=== PATIENT | female | born 1950 | race Caucasian/White ===

== ENCOUNTER 2016-09-02 18:34 | Emergency (ER) | payer OTHER ==
--- NOTE | 2016-09-02 19:23 | DIAGNOSTIC IMAGING REPORT ---
PROCEDURE: XR CHEST 1 VIEW INDICATION: SHORTNESS OF BREATH TECHNIQUE: Single view chest. 1909 hours COMPARISON: Shoulder x-ray 01/10/2015 FINDINGS: Heart size is normal. Tortuous thoracic aorta. No significant central vascular congestion. Hyperlucent emphysematous changes in the upper lobes. Strandy parenchymal change in the lower lobe suggestive of atelectatic change or mild peribronchial thickening. No dense consolidation, pleural effusion, or pneumothorax. Right humeral head arthroplasty. No visible acute fractures. IMPRESSION: 1. Moderate emphysematous changes. 2. Bibasilar atelectasis or peribronchial thickening, likely chronic in the setting of COPD. 3. No evidence of pneumonia or CHF. 4. Right shoulder arthroplasty.
--- NOTE | 2016-09-02 20:57 | ED ORDER SUMMARY ---
..... Patient: MARITA HANNAH OrderSheet [facility] VisitID: [id number] [place] [address] 66y, F Registration Date/Time: 09/02/2016 ORDER SHEET Weight: 90.2 kg (stated) Allergies: No Known Drug Allergy GENERAL ORDERS: EKG - ER Stat (18:43 09/02/2016 ASchmuck per protocol) (18:47 ASchmuck) Chest 1V Urgent (18:53 09/02/2016 Jean Mejia) (Ack 18:55 Corey) (20:21 MCampbell) UA-Culture if indicated Urgent (18:54 09/02/2016 Jean Mejia) (Ack 18:55 Corey) (20:00 ASchmuck) Cardiac Panel Stat (18:54 09/02/2016 Jean Mejia) (Ack 18:55 Corey) (19:14 ASchmuck) BNP Urgent (18:54 09/02/2016 Jean Mejia) (Ack 18:55 Radhaner) (19:14 ASchmuck) D-Dimer Urgent (18:54 09/02/2016 Jean Mejia) (Ack 18:55 Leticiarner) (19:14 ASchmuck) MEDICATION ORDERS: Metoprolol PO 25 mg (HIGH ALERT MEDICATION, NOW) (19:05 09/02/2016 Jean Mejia) (Ack 19:09 ASchmuck) (19:14 ASchmuck) IV FLUIDS: IV NS : initial bolus none -, then 1000 mL/hr for X1 (NOW) (18:53 09/02/2016 Jean Mejia) (Ack 19:04 ASchmuck) (19:09 ASchmuck) ORDER SHEET NOTES: [Electronically signed by Yudith Stephens (21:24 09/02/2016)] [Electronically signed by Frankie Ballard Dr. (22:04 09/02/2016)] [Electronically locked/signed by Yudith Stephens (21:24 09/02/2016)]
--- NOTE | 2016-09-02 20:57 | ED NURSING NOTES ---
Clinical Report - Nurses [facility] [place] [address] 09/02/2016 18:35 Patient: MARITA HANNHA TRIAGE Triage time 18:35 Sep 02 2016. Acuity: LEVEL 2. Chief Complaint: (Palpitations). 18:46 09/02/16. Alert. No acute distress. SEPSIS SCREEN: Sepsis Screen. Negative (no infection suspected/documented). MARY COMA SCORE: [place] Coma Scale: 15- eyes open spontaneously (4); best verbal response- oriented x 4 (5); best motor response- obeys commands (6). --18:46 Yudith Stephens 18:46 09/02/16. BP: 151/106. HR: 113. RR: 17. O2 saturation: 97%. Temp: 97.9 F. Pain level now 0/10. --18:46 Yudith Stephens. Weight: 90.2 kg stated. Height/Length: 70 inches Per Patient. BMI: 28.5. --18:45 Yudith Stephens. Medications Meloxicam Oral. --18:39 Yudith Stephens Levothyroxine Sodium Oral. --18:39 Yudith Stephens. Medication/allergy information source: the patient. --18:46 Yudith Stephens. Allergies No Known Drug Allergy. --18:40 Yudith Stephens. History Arrived by EMS. Historian: EMS. Accompanied by (EMS). Primary physician (Papo Lewis). This started just prior to arrival. ( Pt states that she had CP and sweats last week and went to the clinic. Had normal EKG and labs, but had HTN. Pt denies dizziness/sob/nausea/vomiting. Reports that she had chest pressure and took nitro, which relieved the pressure, continued to feel as though her heart was racing so she called 911.). She has had a cough. It has been similar to previous symptoms. No difficulty breathing, sweating episodes, nausea, vomiting or fever. 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 EMS treatment BLACK OXIDE COATING EQUIPMENT TENDER verbally communicated. Finger stick glucose performed (166). The pre-hospital EKG has been interpreted by EMS. Tachycardia. Sinus tachycardia. BP: 150/110 then 158/86. HR: 150 down to 118. RR: 16. O2 saturation: 96 % room air. ( Pt took 3 nitro BLACK OXIDE COATING EQUIPMENT TENDER. EMS gave 324 mg aspirin). PAST MEDICAL HX: Immunizations: up-to-date. SOCIAL HX: Heavy tobacco smoker (cigarette)- less than 1 pack per day. Alcohol use; consumes four liquor weekly. No drug use. FALL RISK ASSESSMENT: Fall risk assessment completed. No fall risk identified. NUTRITIONAL RISK ASSESSMENT: The nutritional risk assessment revealed no deficiencies. FUNCTIONAL ASSESSMENT: Functional assessment: no impairments noted. LEARNING NEEDS ASSESSMENT: The learning needs assessment revealed no barriers. SKIN INTEGRITY ASSESSMENT: Skin integrity risk assessment completed. No skin integrity risk identified. --18:46 Yudith Stephens. PROBLEMS: Humerus Fracture. Contusion. Fall. Arthritis. Hypothyroidism. --18:40 Yudith Stephens. ADDITIONAL SURGERIES: Lt knee surg. --18:40 Yudith Stephens. Assessment The patient states feels the same. --18:46 Yudith Stephens. Interventions ID band on patient. CHEST PAIN protocol initiated. EKG time: (1844). EKG was ordered, performed by a tech and shown to the ED physician. --18:46 Yudith Stephens. 18:36 09/02/2016 Site #1 started prior to arrival by EMS via IV in the right hand with an 20g angiocath. --18:36 Yudith Stephens. PHYSICAL ASSESSMENT 18:47 09/02/16. To room via stretcher. Patient gowned. GENERAL / NEURO / PSYCH: Alert. Oriented X 4. Appears in no acute distress. HEENT: Mucous membranes are pink. RESPIRATORY: Respirations not labored. Chest nontender. CVS: Cardiac rhythm: sinus tachycardia. Pulses within normal limits. Capillary refill less than 2 seconds. GI / : Abdomen soft and nontender. EXTREMITIES: No lower extremity edema. SKIN: Skin is warm and dry. Normal skin turgor. Skin is non-tender. --18:47 Yudith Stephens. NURSING PROGRESS NOTES 18:47 09/02/16. The plan of care for this patient has been created. postbed stitcher, pulse oximeter and NIBP monitor placed on patient; supply technician- Lead II and V5; monitor alarms on. Patient gowned. Head of bed elevated. Reassurance given. Two patient identifiers checked. Call light placed in reach. Side rails up x 1. Bed placed in lowest position. Brakes of bed on. Patient ready for evaluation- chart flagged and ED physician and PA notified. --18:47 Yudith Stephens EKG time: (1844). EKG was ordered, performed by tamiko guzman and shown to the ED physician. --18:50 Candice Justin 19:09 09/02/2016 Started bag #1 1000 mL IV Fluids IV NS (Saline); at 1000 mL/hr over 1 hour(s) via site #1 via IV pump. Allergies verified and confirmed 5 rights. IV patency established. IV site checked: no pain, redness, or swelling. IV flushed thoroughly pre- and post-medication administration. --19:09 Yudith Stephens 19:14 09/02/2016 Metoprolol PO Tablets 25 mg given. Allergies verified and confirmed 5 rights. --19:14 Yudith Stephens 19:50 09/02/16. BP: 152/98. HR: 105. RR: 15. O2 saturation: 95%. --19:50 Yudith Stephens 20:00 09/02/16. Patient ID band checked for patient name and birthdate: patient confirmed. Instructions provided to collect clean catch urine and patient verbalized understanding. Clean catch urine collected with return of yellow-colored clear urine; sample sent to lab. Specimen labeled in the presence of the patient. --20:00 Yudith Stephens 20:11 09/02/16. BP: 148/90 taken on the left arm, manually. --20:12 McQuoid, Lashae, ER Tech1 20:10 09/02/2016 IV Fluids IV NS Discontinued. Total amount infused: 0 mL. --21:20 Yudith Stephens 21:09/02/2016 Site #1 removed upon discharge. Catheter intact. Pressure dressing applied. --21:21 Yudith Stephens. DISPOSITION / DISCHARGE 21:20 09/02/16. Departure time: 21:Sep 02 2016. Condition at departure: improved. The goals identified in the patient's plan of care were met. No learning barriers present. Discharge instructions provided and reviewed with the patient. Reviewed warnings (Patient verbalized understanding of the importance of monitoring HR and BP after starting medication.). Reviewed medication(s) side effects, precautions, dosing and course information. Prescription(s) given to the patient (metoprolol). Treatments reviewed. Reviewed referral to a primary care physician for followup. Patient verbalized understanding. Written instructions provided in Kinyarwanda. The patient was discharged by the physician. She was discharged home and accompanied by laser beam trim operator. She left the Emergency Department ambulatory and via private vehicle. Drill Press Tender driving. FALL RISK ASSESSMENT: Fall risk assessment completed. No fall risk identified. --21:20 Yudith Stephens 21:18 09/02/16. BP: 148/96. HR: 84. RR: 15. O2 saturation: 95% on room air. Pain level now: 0/10. --21:20 Yudith Stephens. Locked/Released at 09/02/2016 21:24 by Yudith Stephens,
--- NOTE | 2016-09-02 20:57 | ED NURSING NOTES ---
Clinical Report - Nurses [facility] [place] [address] 09/02/2016 18:35 Patient: MARITA HANNAH TRIAGE Triage time 18:35 Sep 02 2016. Acuity: LEVEL 2. Chief Complaint: (Palpitations). 18:46 09/02/16. Alert. No acute distress. SEPSIS SCREEN: Sepsis Screen. Negative (no infection suspected/documented). MARY COMA SCORE: [place] Coma Scale: 15- eyes open spontaneously (4); best verbal response- oriented x 4 (5); best motor response- obeys commands (6). --18:46 Yudith Stephens 18:46 09/02/16. BP: 151/106. HR: 113. RR: 17. O2 saturation: 97%. Temp: 97.9 F. Pain level now 0/10. --18:46 Yudith Stephens. Weight: 90.2 kg stated. Height/Length: 70 inches Per Patient. BMI: 28.5. --18:45 Yudith Stephens. Medications Meloxicam Oral. --18:39 Yudith Stephens Levothyroxine Sodium Oral. --18:39 Yudith Stephens. Medication/allergy information source: the patient. --18:46 Yudith Stephens. Allergies No Known Drug Allergy. --18:40 Yudith Stephens. History Arrived by EMS. Historian: EMS. Accompanied by (EMS). Primary physician (Papo Lewis). This started just prior to arrival. ( Pt states that she had CP and sweats last week and went to the clinic. Had normal EKG and labs, but had HTN. Pt denies dizziness/sob/nausea/vomiting. Reports that she had chest pressure and took nitro, which relieved the pressure, continued to feel as though her heart was racing so she called 911.). She has had a cough. It has been similar to previous symptoms. No difficulty breathing, sweating episodes, nausea, vomiting or fever. Treatment NETWORK SECURITY ENGINEER: See EMS report. EMS treatment NETWORK SECURITY ENGINEER verbally communicated. Finger stick glucose performed (166). The pre-hospital EKG has been interpreted by EMS. Tachycardia. Sinus tachycardia. BP: 150/110 then 158/86. HR: 150 down to 118. RR: 16. O2 saturation: 96 % room air. ( Pt took 3 nitro NETWORK SECURITY ENGINEER. EMS gave 324 mg aspirin). PAST MEDICAL HX: Immunizations: up-to-date. SOCIAL HX: Heavy tobacco smoker (cigarette)- less than 1 pack per day. Alcohol use; consumes four liquor weekly. No drug use. FALL RISK ASSESSMENT: Fall risk assessment completed. No fall risk identified. NUTRITIONAL RISK ASSESSMENT: The nutritional risk assessment revealed no deficiencies. FUNCTIONAL ASSESSMENT: Functional assessment: no impairments noted. LEARNING NEEDS ASSESSMENT: The learning needs assessment revealed no barriers. SKIN INTEGRITY ASSESSMENT: Skin integrity risk assessment completed. No skin integrity risk identified. --18:46 Yudith Stephens. PROBLEMS: Humerus Fracture. Contusion. Fall. Arthritis. Hypothyroidism. --18:40 Yudith Stephens. ADDITIONAL SURGERIES: Lt knee surg. --18:40 Yudith Stephens. Assessment The patient states feels the same. --18:46 Yudith Stephens. Interventions ID band on patient. CHEST PAIN protocol initiated. EKG time: (1844). EKG was ordered, performed by a tech and shown to the ED physician. --18:46 Yudith Stephens. 18:36 09/02/2016 Site #1 started prior to arrival by EMS via IV in the right hand with an 20g angiocath. --18:36 Yudith Stephens. PHYSICAL ASSESSMENT 18:47 09/02/16. To room via stretcher. Patient gowned. GENERAL / NEURO / PSYCH: Alert. Oriented X 4. Appears in no acute distress. HEENT: Mucous membranes are pink. RESPIRATORY: Respirations not labored. Chest nontender. CVS: Cardiac rhythm: sinus tachycardia. Pulses within normal limits. Capillary refill less than 2 seconds. GI / : Abdomen soft and nontender. EXTREMITIES: No lower extremity edema. SKIN: Skin is warm and dry. Normal skin turgor. Skin is non-tender. --18:47 Yudith Stephens. NURSING PROGRESS NOTES 18:47 09/02/16. The plan of care for this patient has been created. environmental monitoring specialist, pulse oximeter and NIBP monitor placed on patient; awake overnight monitor- Lead II and V5; monitor alarms on. Patient gowned. Head of bed elevated. Reassurance given. Two patient identifiers checked. Call light placed in reach. Side rails up x 1. Bed placed in lowest position. Brakes of bed on. Patient ready for evaluation- chart flagged and ED physician and PA notified. --18:47 Yudith Stephens EKG time: (1844). EKG was ordered, performed by tamiko guzman and shown to the ED physician. --18:50 Candice Justin 19:09 09/02/2016 Started bag #1 1000 mL IV Fluids IV NS (Saline); at 1000 mL/hr over 1 hour(s) via site #1 via IV pump. Allergies verified and confirmed 5 rights. IV patency established. IV site checked: no pain, redness, or swelling. IV flushed thoroughly pre- and post-medication administration. --19:09 Yudith Stephens 19:14 09/02/2016 Metoprolol PO Tablets 25 mg given. Allergies verified and confirmed 5 rights. --19:14 Yudith Stephens 19:50 09/02/16. BP: 152/98. HR: 105. RR: 15. O2 saturation: 95%. --19:50 Yudith Stephens 20:00 09/02/16. Patient ID band checked for patient name and birthdate: patient confirmed. Instructions provided to collect clean catch urine and patient verbalized understanding. Clean catch urine collected with return of yellow-colored clear urine; sample sent to lab. Specimen labeled in the presence of the patient. --20:00 Yudith Stephens 20:11 09/02/16. BP: 148/90 taken on the left arm, manually. --20:12 McQuoid, Lashae, ER Tech1 20:10 09/02/2016 IV Fluids IV NS Discontinued. Total amount infused: 0 mL. --21:20 Yudith Stephens 21:09/02/2016 Site #1 removed upon discharge. Catheter intact. Pressure dressing applied. --21:21 Yudith Stephens. DISPOSITION / DISCHARGE 21:20 09/02/16. Departure time: 21:Sep 02 2016. Condition at departure: improved. The goals identified in the patient's plan of care were met. No learning barriers present. Discharge instructions provided and reviewed with the patient. Reviewed warnings (Patient verbalized understanding of the importance of monitoring HR and BP after starting medication.). Reviewed medication(s) side effects, precautions, dosing and course information. Prescription(s) given to the patient (metoprolol). Treatments reviewed. Reviewed referral to a primary care physician for followup. Patient verbalized understanding. Written instructions provided in Maori. The patient was discharged by the physician. She was discharged home and accompanied by bench molder apprentice. She left the Emergency Department ambulatory and via private vehicle. Health Systems Analyst driving. FALL RISK ASSESSMENT: Fall risk assessment completed. No fall risk identified. --21:20 Yudith Stephens 21:18 09/02/16. BP: 148/96. HR: 84. RR: 15. O2 saturation: 95% on room air. Pain level now: 0/10. --21:20 Yudith Stephens. Locked/Released at 09/02/2016 21:24 by Yudith Stephens,
--- NOTE | 2016-09-02 20:57 | ED CLINICAL REPORT ---
Clinical Report - Physicians/Mid Levels [facility] [address] [place] [address] 09/02/2016 18:35 Patient: MARITA HANNAH Time Seen: 18:43; initial patient contact. Arrived- By ambulance. Historian- patient. HISTORY OF PRESENT ILLNESS Chief Complaint: PALPITATIONS. It is described as a fast heart beat. This started today and is still present. It was abrupt in onset and has been constant. Modifying factors. Not worsened by anything. Not relieved by anything. No chest pain or discomfort, difficulty breathing, sweating episodes or fainting episodes. No dizziness. Treatment NIGHT ORDER SELECTOR: Pre-hospital treatment by patient. (NTG and ASA). Similar symptoms previously: Once. Recent medical care: Not recently seen/assessed. REVIEW OF SYSTEMS No orthopnea or calf pain. All systems otherwise negative, except as recorded above. PAST HISTORY Humerus Fracture. Contusion. Fall. Arthritis. Hypothyroidism. SURGERIES: Lt knee surg. Medications: Levothyroxine Sodium Oral. Meloxicam Oral. Allergies: No Known Drug Allergy. SOCIAL HISTORY Current every day smoker. Occasional alcohol use. ADDITIONAL NOTES The nursing notes have been reviewed. PHYSICAL EXAM Vital Signs: 09/02/2016 18:46 BP: 151/106. HR: 113. RR: 17. O2 saturation: 97%. Temp: 97.9 F. Have been reviewed. Hypertensive. Tachycardic. Respiratory rate normal. Temperature normal. Oxygen saturation normal. Appearance: Alert. Oriented X3. No acute distress. Eyes: Eyes normal inspection. ENT: Dry mucous membranes present. CVS: Tachycardia. Heart sounds normal. Rhythm normal. Respiratory: No respiratory distress. Breath sounds normal. Skin: Skin warm and dry. Normal skin color. Extremities: No calf tenderness. No lower extremity edema. Neuro: Oriented X 3. LABS, X-RAYS, AND EKG EKG: EKG time: (1844). Regular narrow-complex tachycardia (ventricular rate 116). Sinus tachycardia. Normal P waves. Normal FLAKITA. Normal QRS complex. Normal axis. Normal ST and T waves, QT and QTc. Prior EKG unavailable. The study has been interpreted contemporaneously by me. The study has been independently viewed by me. The EKG appears to be a good tracing. Interpretation time: 1844. Chest X-ray: (1. Moderate emphysematous changes. 2. Bibasilar atelectasis or peribronchial thickening, likely chronic in the setting of COPD. 3. No evidence of pneumonia or CHF.). Views: AP. Technique: good. The X-rays were independently viewed by me, interpreted by the radiologist and discussed with the radiologist. Prior films were not available for comparison. Laboratory Tests: UA-Culture if indicated: (ABIOLA: 09/02/2016 19:35) ( [facility] 09/02/2016 20:18) Final results Test Result Flag Units (Reference) URINE COLOR YELLOW URINE APPEARANCE CLEAR URINE GLUCOSE NEGATIVE (NEGATIVE) URINE BILIRUBIN NEGATIVE (NEGATIVE) URINE KETONE NEGATIVE (NEGATIVE) URINE SPECIFIC GRAVITY 1.015 (1.010-1.030) URINE PH 5.5 (5.0-8.0) URINE PROTEIN NEGATIVE (NEGATIVE) URINE UROBILINOGEN 0.2 EU/dL (0.2-1.0) URINE NITRITE NEGATIVE (NEGATIVE) URINE BLOOD NEGATIVE (NEGATIVE) URINE LEUK ESTERASE NEGATIVE (NEGATIVE) URINE RBC NONE SEEN rbc/hpf (0-1) URINE WBC 0-1 wbc/hpf (0-1) URINE EPITHELIAL CELLS 0-1 EPI/hpf (0-5) URINE BACTERIA NONE SEEN (NONE SEEN) URINE COMMENT CULT NOT INDICATED URINE CULTURES ARE SET-UP BASED ON THE FOLLOWING CRITERIA:POSITIVE NITRITEPOSITIVE LEUKOCYTE ESTERASEGREATER THAN 10 WHITE BLOOD CELLSMODERATE (2+) OR GREATER BACTERIA CBC w Diff: (ABIOLA: 09/02/2016 19:05) ( [facility] 09/02/2016 19:28) Final results Test Result Flag Units (Reference) WHITE BLOOD COUNT 11.1 K/uL (4.5-11.5) RED BLOOD COUNT 4.48 M/uL (4.00-5.20) HEMOGLOBIN 14.3 gm/dL (12.0-16.0) HEMATOCRIT 42.3 % (36.0-46.0) MEAN CELL VOLUME 95 fL (80-100) MEAN CORPUSCULAR HGB 32 pg (26-34) MEAN CORPUSCULAR HGB CONC 34 g/dL (31-37) RED CELL DISTRIBUTION WIDTH 13.6 % (11.6-14.8) PLATELET COUNT 216 K/uL (150-400) NEUTROPHIL % 65.9 % (50-75) LYMPH % 23.4 L % (25-40) MONO % 7.7 % (3-14) EOSINOPHIL % 2.6 % (0-4) BASOPHIL % 0.4 % (0-2) [id number]: (ABIOLA: 09/02/2016 19:05) ( [employer] 09/02/2016 19:42) Final results Test Result Flag Units (Reference) D-DIMER QUANTITATIVE < 0.27 L ug/mLFEU (0.27-0.52) The primary value of this quantitative assay relates toits negative predictive value (i.e. exclusion) of pulmonaryembolism/deep vein thrombosis/DIC.Elevated levels of d-dimer may also occur with:, age, cancer, inflammation, liver disease,post-op, infection, hematoma, coronary disease, peripheralarteriopathy, bleeding disorders and thrombolytic treatment.Results should be correlated with other clinical andradiological data.Testing Methodology: Latex Immunoassay BNP: (ABIOLA: 09/02/2016 19:05) ( [employer] 09/02/2016 20:00) Final results Test Result Flag Units (Reference) B-TYPE NATRIURETIC PEPTIDE 8.6 pg/ml (5-100) CHEM 13 PANEL: (ABIOLA: 09/02/2016 19:05) ( [employer] 09/02/2016 19:59) Final results Test Result Flag Units (Reference) GLUCOSE 131 H mg/dL (70-110) BUN 19 H mg/dL (7-18) CREATININE 0.8 mg/dL (0.6-1.3) Estimated GFR >60 mL/min Estimated GFR- >60 mL/min Note: Persistent reduction over 3 months in eGFR<60 mL/min/1.73 m2 defines CKD. Patients with eGFR values>=60 mL/min/1.73 m2 may also have CKD if evidence ofpersistent proteinuria. Additional information may be foundat www.kidney.org. SODIUM 139 mmol/L (136-145) POTASSIUM 3.8 mmol/L (3.5-5.1) CHLORIDE 103 mmol/L (98-107) CARBON DIOXIDE 26 mmol/L (21-32) CALCIUM 9.0 mg/dL (8.5-10.1) TOTAL PROTEIN 7.0 g/dL (6.4-8.2) ALBUMIN 3.7 g/dL (3.3-5.0) BILIRUBIN, TOTAL 0.4 mg/dL (0.0-1.0) ALKALINE PHOSPHATASE 93 U/L (46-116) AST (SGOT) 20 U/L (15-37) ALT (SGPT) 27 U/L (12-78) MAGNESIUM 1.9 mg/dL (1.8-2.4) CPK 109 U/L (24-260) TROPONIN I <0.05 ng/mL (0.00-1.5) TROPONIN REFERENCE RANGE:<0.1 NEGATIVE0.1-1.5 INDETERMINANT>1.5 POSITIVE . PROGRESS AND PROCEDURES Course of Care: 09/02/2016 20:56 HR: 93. 09/02/2016 20:11 BP: 148/90. Vital Signs: have been reviewed. Hypertensive. Heart rate normal. Disposition: Discharged home in good and improved condition. Condition: good. CLINICAL IMPRESSION Sinus tachycardia Essential hypertension. INSTRUCTIONS Follow a low salt diet. Your Current Medications: CONTINUE TAKING THE FOLLOWING MEDICATIONS: Levothyroxine Sodium Oral. Meloxicam Oral. Prescription Medications: Metoprolol 25 mg: take 1 orally every 12 hours. Dispense thirty (30). No refills. Follow-up: Follow up with your doctor On 09/16/16 as scheduled. Screening today revealed the patient's blood pressure to be in the hypertensive range. The patient should follow up with a primary care provider for blood pressure management. (Electronically signed by Frankie Ballard Dr. 09/02/2016 22:04)
--- NOTE | 2016-09-02 20:57 | ED ORDER SUMMARY ---
..... Patient: MARITA HANNAH OrderSheet [facility] VisitID: [id number] [place] [address] 66y, F Registration Date/Time: 09/02/2016 ORDER SHEET Weight: 90.2 kg (stated) Allergies: No Known Drug Allergy GENERAL ORDERS: EKG - ER Stat (18:43 09/02/2016 ASchmuck per protocol) (18:47 ASchmuck) Chest 1V Urgent (18:53 09/02/2016 Jean Mejia) (Ack 18:55 Corey) (20:21 MCampbell) UA-Culture if indicated Urgent (18:54 09/02/2016 Jean Mejia) (Ack 18:55 Corey) (20:00 ASchmuck) Cardiac Panel Stat (18:54 09/02/2016 Jean Mejia) (Ack 18:55 Corey) (19:14 ASchmuck) BNP Urgent (18:54 09/02/2016 Jean Mejia) (Ack 18:55 Radhaner) (19:14 ASchmuck) D-Dimer Urgent (18:54 09/02/2016 Jean Mejia) (Ack 18:55 Leticiarner) (19:14 ASchmuck) MEDICATION ORDERS: Metoprolol PO 25 mg (HIGH ALERT MEDICATION, NOW) (19:05 09/02/2016 Jean Mejia) (Ack 19:09 ASchmuck) (19:14 ASchmuck) IV FLUIDS: IV NS : initial bolus none -, then 1000 mL/hr for X1 (NOW) (18:53 09/02/2016 Jean Mejia) (Ack 19:04 ASchmuck) (19:09 ASchmuck) ORDER SHEET NOTES: [Electronically signed by Yudith Stephens (21:24 09/02/2016)] [Electronically signed by Frankie Ballard Dr. (22:04 09/02/2016)] [Electronically locked/signed by Yudith Stephens (21:24 09/02/2016)]
--- NOTE | 2016-09-02 20:57 | ED CLINICAL REPORT ---
Clinical Report - Physicians/Mid Levels [facility] [address] [place] [address] 09/02/2016 18:35 Patient: MARITA HANNAH Time Seen: 18:43; initial patient contact. Arrived- By ambulance. Historian- patient. HISTORY OF PRESENT ILLNESS Chief Complaint: PALPITATIONS. It is described as a fast heart beat. This started today and is still present. It was abrupt in onset and has been constant. Modifying factors. Not worsened by anything. Not relieved by anything. No chest pain or discomfort, difficulty breathing, sweating episodes or fainting episodes. No dizziness. 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 (NTG and ASA). Similar symptoms previously: Once. Recent medical care: Not recently seen/assessed. REVIEW OF SYSTEMS No orthopnea or calf pain. All systems otherwise negative, except as recorded above. PAST HISTORY Humerus Fracture. Contusion. Fall. Arthritis. Hypothyroidism. SURGERIES: Lt knee surg. Medications: Levothyroxine Sodium Oral. Meloxicam Oral. Allergies: No Known Drug Allergy. SOCIAL HISTORY Current every day smoker. Occasional alcohol use. ADDITIONAL NOTES The nursing notes have been reviewed. PHYSICAL EXAM Vital Signs: 09/02/2016 18:46 BP: 151/106. HR: 113. RR: 17. O2 saturation: 97%. Temp: 97.9 F. Have been reviewed. Hypertensive. Tachycardic. Respiratory rate normal. Temperature normal. Oxygen saturation normal. Appearance: Alert. Oriented X3. No acute distress. Eyes: Eyes normal inspection. ENT: Dry mucous membranes present. CVS: Tachycardia. Heart sounds normal. Rhythm normal. Respiratory: No respiratory distress. Breath sounds normal. Skin: Skin warm and dry. Normal skin color. Extremities: No calf tenderness. No lower extremity edema. Neuro: Oriented X 3. LABS, X-RAYS, AND EKG EKG: EKG time: (1844). Regular narrow-complex tachycardia (ventricular rate 116). Sinus tachycardia. Normal P waves. Normal FLAKITA. Normal QRS complex. Normal axis. Normal ST and T waves, QT and QTc. Prior EKG unavailable. The study has been interpreted contemporaneously by me. The study has been independently viewed by me. The EKG appears to be a good tracing. Interpretation time: 1844. Chest X-ray: (1. Moderate emphysematous changes. 2. Bibasilar atelectasis or peribronchial thickening, likely chronic in the setting of COPD. 3. No evidence of pneumonia or CHF.). Views: AP. Technique: good. The X-rays were independently viewed by me, interpreted by the radiologist and discussed with the radiologist. Prior films were not available for comparison. Laboratory Tests: UA-Culture if indicated: (ABIOLA: 09/02/2016 19:35) ( [facility] 09/02/2016 20:18) Final results Test Result Flag Units (Reference) URINE COLOR YELLOW URINE APPEARANCE CLEAR URINE GLUCOSE NEGATIVE (NEGATIVE) URINE BILIRUBIN NEGATIVE (NEGATIVE) URINE KETONE NEGATIVE (NEGATIVE) URINE SPECIFIC GRAVITY 1.015 (1.010-1.030) URINE PH 5.5 (5.0-8.0) URINE PROTEIN NEGATIVE (NEGATIVE) URINE UROBILINOGEN 0.2 EU/dL (0.2-1.0) URINE NITRITE NEGATIVE (NEGATIVE) URINE BLOOD NEGATIVE (NEGATIVE) URINE LEUK ESTERASE NEGATIVE (NEGATIVE) URINE RBC NONE SEEN rbc/hpf (0-1) URINE WBC 0-1 wbc/hpf (0-1) URINE EPITHELIAL CELLS 0-1 EPI/hpf (0-5) URINE BACTERIA NONE SEEN (NONE SEEN) URINE COMMENT CULT NOT INDICATED URINE CULTURES ARE SET-UP BASED ON THE FOLLOWING CRITERIA:POSITIVE NITRITEPOSITIVE LEUKOCYTE ESTERASEGREATER THAN 10 WHITE BLOOD CELLSMODERATE (2+) OR GREATER BACTERIA CBC w Diff: (ABIOLA: 09/02/2016 19:05) ( [facility] 09/02/2016 19:28) Final results Test Result Flag Units (Reference) WHITE BLOOD COUNT 11.1 K/uL (4.5-11.5) RED BLOOD COUNT 4.48 M/uL (4.00-5.20) HEMOGLOBIN 14.3 gm/dL (12.0-16.0) HEMATOCRIT 42.3 % (36.0-46.0) MEAN CELL VOLUME 95 fL (80-100) MEAN CORPUSCULAR HGB 32 pg (26-34) MEAN CORPUSCULAR HGB CONC 34 g/dL (31-37) RED CELL DISTRIBUTION WIDTH 13.6 % (11.6-14.8) PLATELET COUNT 216 K/uL (150-400) NEUTROPHIL % 65.9 % (50-75) LYMPH % 23.4 L % (25-40) MONO % 7.7 % (3-14) EOSINOPHIL % 2.6 % (0-4) BASOPHIL % 0.4 % (0-2) [id number]: (ABIOLA: 09/02/2016 19:05) ( [facility] 09/02/2016 19:42) Final results Test Result Flag Units (Reference) D-DIMER QUANTITATIVE < 0.27 L ug/mLFEU (0.27-0.52) The primary value of this quantitative assay relates toits negative predictive value (i.e. exclusion) of pulmonaryembolism/deep vein thrombosis/DIC.Elevated levels of d-dimer may also occur with:, age, cancer, inflammation, liver disease,post-op, infection, hematoma, coronary disease, peripheralarteriopathy, bleeding disorders and thrombolytic treatment.Results should be correlated with other clinical andradiological data.Testing Methodology: Latex Immunoassay BNP: (ABIOLA: 09/02/2016 19:05) ( [facility] 09/02/2016 20:00) Final results Test Result Flag Units (Reference) B-TYPE NATRIURETIC PEPTIDE 8.6 pg/ml (5-100) CHEM 13 PANEL: (ABIOLA: 09/02/2016 19:05) ( [facility] 09/02/2016 19:59) Final results Test Result Flag Units (Reference) GLUCOSE 131 H mg/dL (70-110) BUN 19 H mg/dL (7-18) CREATININE 0.8 mg/dL (0.6-1.3) Estimated GFR >60 mL/min Estimated GFR- >60 mL/min Note: Persistent reduction over 3 months in eGFR<60 mL/min/1.73 m2 defines CKD. Patients with eGFR values>=60 mL/min/1.73 m2 may also have CKD if evidence ofpersistent proteinuria. Additional information may be foundat [email or web address].org. SODIUM 139 mmol/L (136-145) POTASSIUM 3.8 mmol/L (3.5-5.1) CHLORIDE 103 mmol/L (98-107) CARBON DIOXIDE 26 mmol/L (21-32) CALCIUM 9.0 mg/dL (8.5-10.1) TOTAL PROTEIN 7.0 g/dL (6.4-8.2) ALBUMIN 3.7 g/dL (3.3-5.0) BILIRUBIN, TOTAL 0.4 mg/dL (0.0-1.0) ALKALINE PHOSPHATASE 93 U/L (46-116) AST (SGOT) 20 U/L (15-37) ALT (SGPT) 27 U/L (12-78) MAGNESIUM 1.9 mg/dL (1.8-2.4) CPK 109 U/L (24-260) TROPONIN I <0.05 ng/mL (0.00-1.5) TROPONIN REFERENCE RANGE:<0.1 NEGATIVE0.1-1.5 INDETERMINANT>1.5 POSITIVE . PROGRESS AND PROCEDURES Course of Care: 09/02/2016 20:56 HR: 93. 09/02/2016 20:11 BP: 148/90. Vital Signs: have been reviewed. Hypertensive. Heart rate normal. Disposition: Discharged home in good and improved condition. Condition: good. CLINICAL IMPRESSION Sinus tachycardia Essential hypertension. INSTRUCTIONS Follow a low salt diet. Your Current Medications: CONTINUE TAKING THE FOLLOWING MEDICATIONS: Levothyroxine Sodium Oral. Meloxicam Oral. Prescription Medications: Metoprolol 25 mg: take 1 orally every 12 hours. Dispense thirty (30). No refills. Follow-up: Follow up with your doctor On 09/16/16 as scheduled. Screening today revealed the patient's blood pressure to be in the hypertensive range. The patient should follow up with a primary care provider for blood pressure management. (Electronically signed by Frankie Ballard Dr. 09/02/2016 22:04)
--- NOTE | 2016-09-02 22:04 | ED MAR SUMMARY ---
..... Medication Administration Record [facility] [address] [place] [address] Patient: MARITA HANNAH Visit ID: [id number] 66y, F Weight: 90.2 kg Height/Length: 70 in BMI: 28.5 ALLERGIES: No Known Drug Allergy Start 19:09 09/02/2016 Yudith Stephens,, Stop 20:10 09/02/2016 Yudith Stephens, Medication Administered: IV NS (SALINE), Dose: IV Fluids over 1 hour(s), Rate: 1000 mL/hr, Dispensed: 1000 mL bag, Site: #1 right hand. Medication Ordered: IV NS : initial bolus none -, then 1000 mL/hr for X1 (NOW). Given 19:14 09/02/2016 Yudith Stephens, Medication Administered: METOPROLOL [PO], Dose: 25 mg Tablets PO. Medication Ordered: Metoprolol PO 25 mg (HIGH ALERT MEDICATION, NOW).
--- NOTE | 2016-09-02 22:04 | ED MED RECONCILIATION SUMMARY ---
Patient: MARITA HANNAH Medication Reconciliation Report [facility] VisitID: [id number] [address] [place] [address] 66y, F Registration Date/Time: 09/02/2016 Weight: 90.2 kg Height/Length: 70 in. BMI: 28.5 ALLERGIES: No Known Drug Allergy The patient's Home Medications are listed below: CONTINUE TAKING THE FOLLOWING MEDICATIONS: Levothyroxine Sodium Oral Meloxicam Oral The source(s) of the original Home Medication information: patient The following Medications were given to the patient in the Emergency Department: IV NS IV Fluids bolus 0, then 1000 mL/hr, administered: 09/02/2016 7:09:00 PM Metoprolol [PO] PO 25 mg, administered: 09/02/2016 7:14:00 PM The following Medications were prescribed to the patient: Metoprolol 25 mg: take 1 orally every 12 hours. Dispense thirty (30). No refills. -- Frankie Ballard Dr.
--- NOTE | 2016-09-02 22:04 | ED DISCHARGE INSTRUCTIONS ---
Patient: MARITA HANNAH General Instructions [facility] VisitID: [id number] [place] [address] 66y, F Registration Date/Time: 09/02/2016 Sinus tachycardia Essential hypertension. INSTRUCTIONS Follow a low salt diet. Your Current Medications: CONTINUE TAKING THE FOLLOWING MEDICATIONS: Levothyroxine Sodium Oral. Meloxicam Oral. Prescription Medications: Metoprolol 25 mg: take 1 orally every 12 hours. Dispense thirty (30). No refills. Follow-up: Follow up with your doctor On 09/16/16 as scheduled. Screening today revealed the patient's blood pressure to be in the hypertensive range. The patient should follow up with a primary care provider for blood pressure management. ADDITIONAL INFORMATION Tachycardia:P.A.T. (P.S.V.T.) P.A.T. stands for Paroxysmal Atrial Tachycardia (also called "P.S.V.T." or "Paroxysmal Supraventricular Tachycardia"). This means "sudden onset of fast heart beating." This may feel like your heart is racing or pounding. Because of the suddenness of onset, it is often scary but is usually not a dangerous condition. Episodes may last seconds, minutes or hours. This can occur in otherwise healthy persons who have used excessive amounts of stimulants such as tobacco or caffeine (coffee, tea, cola or medicines containing caffeine). Also certain uyfq-gbb-tnqrobr cold & sinus remedies, as well as diet pills and some herbal supplements can over-stimulate the heart. Obviously, cocaine and amphetamine are the most powerful heart stimulants and must be avoided. Overactive thyroid and some types of heart valve disorders can also cause P.A.T. If your doctor suspects this, tests may be done to find out if this is the cause in your case. Home Care: 1) Rest today and resume your normal activities as soon as you are feeling back to normal. Sometimes a prolonged episode of P.A.T. can leave you feeling tired and weak for a while. 2) To prevent a recurrence, avoid ALL the stimulants mentioned above. If you have trouble eliminating coffee, switch to decaf. Smokers should make every effort to stop or at least switch to a filtered, low-nicotine type of cigarette while you look for a stop-smoking program. 3) If another episode of P.A.T. occurs, lie down and try to remain calm. These spells usually stop by themselves within a few minutes. Follow Up with your doctor within the week or as instructed by our staff. Get Prompt Medical Attention if any of the following occur: -- Chest, shoulder, arm, neck or back pain -- Shortness of breath -- Weakness -- Fainting or light-headedness -- Fast or pounding heartbeat that lasts over 20 minutes High Blood Pressure -- New (Begin Tx) Your blood pressure was high enough today to start treatment with medicines. The cause of hypertension is unknown in most cases, but can be controlled with lifestyle changes and/or medicines. Hypertension may cause headache, dizziness, blurred vision, rushing sound in your ears, chest pain or shortness of breath. Sometimes it causes no symptoms at all. However, untreated hypertension increases the risk of heart attack, also known as acute myocardial infarction, or AMI, and stroke. It is a serious health risk and should not be ignored. A normal blood pressure is 120/80 or less. The first (top) number is the "systolic" pressure. The second (bottom) number is the "diastolic" pressure. Hypertension exists when either the top number is 140 or higher, OR the bottom number is 90 or higher on repeated measurements. Home Care: All patients with hypertension should do the following to lower their pressure. If you are on medicines, then these methods may reduce or eliminate your need for medicine in the future. Begin a weight loss program if you are overweight. Reduce your salt intake. Avoid high salt foods (olives, pickles, smoked meats, salted potato chips, etc.). Do not add salt to your food at the table. Use only small amounts of salt when cooking. Begin an exercise program. Discuss with your doctor what type of exercise program would be best for you. It doesn't have to be difficult. Even brisk walking for 20 minutes three times a week is a good form of exercise. Avoid medicines which contain heart stimulants. This includes many cold and sinus decongestant pills and sprays as well as diet pills. Check the warnings about hypertension on the label. Stimulants such as amphetamine or cocaine could be lethal for someone with hypertension. Never take these. Limit your caffeine intake or switch to caffeine-free products. Stop smoking. If you are a long-time smoker, this can be hard. Enroll in a stop-smoking program to improve your chance of success. Talk to your physician about ways to improve your chance of success. Learning how to handle stress better is an important part of any program to lower blood pressure. Learn about relaxation methods such as meditation, yoga, or biofeedback. If medicines were prescribed, take them exactly as directed. Missing doses may cause your blood pressure to get out of control. Consider buying an automatic blood pressure machine (available at many pharmacies). Use this to monitor your blood pressure and report to your doctor. Follow Up: Because a new blood pressure medicine was started today, it is important that you have your blood pressure rechecked to be sure you are responding well and that there are no serious side effects. Unless told otherwise, follow-up with your doctor or this facility within the next THREE DAYS. Get Prompt Medical Attention if any of the following occur: Chest pain or shortness of breath Severe headache Throbbing or rushing sound in the ears Nosebleed Sudden severe abdominal pain Extreme drowsiness, confusion or fainting Dizziness or vertigo (dizziness with spinning sensation) Weakness of an arm or leg or one side of the face Difficulty with speech or vision Low-Salt Diet (2 Grams/Day) This diet eliminates foods that are high in salt and restricts the amount of salt that you cook with. It is most often used for patients with high blood pressure, edema (fluid retention), kidney, liver, and heart disease. Table salt contains the mineral sodium. The body needs sodium to work normally. But too much sodium can make your health problems worse. Your healthcare provider is recommending a low-salt (also called low-sodium) diet for you. Your total daily allowance of salt (sodium) is 2 grams. This equals 2,000 milligrams (mg). It is less than 1 teaspoon of table salt. This means you can have only about 700 mg of sodium at each meal. When you cook, limit the salt you use. And if you can avoid using salt, even better. Do not add salt at the table. So, throw away the saltshaker! When shopping, read the package labels. Salt is often called sodium on the label. Choose foods that are Salt-Free, Low Salt, or Very Low Salt. Note that foods with Reduced Salt may notlower your salt intake enough. Beverages OK: Tea, coffee, carbonated beverages, juices AVOID: Flavored international coffees, electrolyte replacement drinks, sports beverages Bread & Cereals OK: All regular bread, rolls, cereals, cakes; low-salt crackers, matzoh crackers AVOID: Salted crackers, pretzels, popcorn; hungarian toast, pancakes, muffins Fruits & Desserts OK: Ice cream, frozen yogurt, juice bars, gelatin (Jell-O), cookies and pies, sugar, honey, jelly, hard candy AVOID: Most pies, cakes and cookies prepared or processed with salt, instant pudding Meats OK: All fresh meat, fish, poultry, low-salt tuna AVOID: Smoked, pickled, brine-cured, or salted meats or fish. Thisincludes alexis, chipped beef, corned beef, hot dogs, luncheon meats, ham, kosher meats, salt pork, sausage, canned tuna, salted codfish, smokedsalmon, briggs, sardines, or anchovies. Dairy OK: Milk, chocolate milk, hot chocolate mix; eggs, Low Salt cheeses, yogurt, egg substitute AVOID: Processed cheese, cheese spreads, Roquefort, Camembert, and cottage cheese, buttermilk, instant breakfast drink Beans, Potatoes & Pasta OK: Dry beans, split peas, lentils, potatoes, rice, macaroni, noodles, spaghetti without added salt AVOID: Potato chips, tortilla chips, and similar products Soups OK: Low-salt soups and broths made with allowed foods AVOID: Bouillon cubes, soups with smoked or salted meats, regular soup and broth Vegetables OK: Most are okay; low-salt tomato and vegetable juices AVOID: Sauerkraut and other brine-soaked vegetables, pickles and other pickled vegetables, tomato juice, olives Seasoning & Spices OK: Most seasonings are okay. Good substitutes for salt include: fresh herb blends, Tabasco, lemon, garlic, martin, vinegar, dry mustard, parsley, cilantro, horseradish, tomato paste, regular margarine, mayonnaise, butter, cream cheese, vegetable oil, cream, low-salt salad dressing and gravy AVOID: Regular ketchup, relishes, pickles, soy sauce, teriyaki sauce, Worcestershire sauce, BBQ sauce, tartar sauce, meat tenderizer, chili sauce, regular gravy, regular salad dressing Metoprolol Tartrate Oral tablet What is this medicine? METOPROLOL (me TOE proe lole) is a beta-maribel. Beta-blockers reduce the workload on the heart and help it to beat more regularly. This medicine is used to treat high blood pressure and to prevent chest pain. It is also used to after a heart attack and to prevent an additional heart attack from occurring. How should I use this medicine? Take this medicine by mouth with a drink of water. Follow the directions on the prescription label. Take this medicine immediately after meals. Take your doses at regular intervals. Do not take more medicine than directed. Do not stop taking this medicine suddenly. This could lead to serious heart-related effects. Talk to your automobile insurance claim examiner regarding the use of this medicine in children. Special care may be needed. What side effects may I notice from receiving this medicine? Side effects that you should report to your doctor or health resident care associate as soon as possible: allergic reactions like skin rash, itching or hives cold or numb hands or feet depression difficulty breathing faint fever with sore throat irregular heartbeat, chest pain rapid weight gain swollen legs or ankles Side effects that usually do not require medical attention (report to your doctor or health resident care associate if they continue or are bothersome): anxiety or nervousness change in sex drive or performance dry skin headache nightmares or trouble sleeping short term memory loss stomach upset or diarrhea unusually tired What may interact with this medicine? Do not take this medicine with any of the following medications: sotalol This medicine may also interact with the following medications: clonidine digoxin dobutamine epinephrine isoproterenol medicine to control heart rhythm like quinidine, propafenone medicine for depression like monoamine oxidase (MAO) inhibitors, fluoxetine, and paroxetine medicine for high blood pressure like calcium channel blockers reserpine What if I miss a dose? If you miss a dose, take it as soon as you can. If it is almost time for your next dose, take only that dose. Do not take double or extra doses. Where should I keep my medicine? Keep out of the reach of children. Store at room temperature between 15 and 30 degrees C (59 and 86 degrees F). Throw away any unused medicine after the expiration date. What should I tell my health care provider before I take this medicine? They need to know if you have any of these conditions: diabetes heart or vessel disease like slow heart rate, worsening heart failure, heart block, sick sinus syndrome or Raynaud's disease kidney disease liver disease lung or breathing disease, like asthma or emphysema pheochromocytoma thyroid disease an unusual or allergic reaction to metoprolol, other beta-blockers, medicines, foods, dyes, or preservatives or trying to get breast-feeding What should I watch for while using this medicine? Visit your doctor or health resident care associate for regular check ups. Contact your doctor right away if your symptoms worsen. Check your blood pressure and pulse rate regularly. Ask your health resident care associate what your blood pressure and pulse rate should be, and when you should contact them. You may get drowsy or dizzy. Do not drive, use machinery, or do anything that needs mental alertness until you know how this medicine affects you. Do not sit or stand up quickly, especially if you are an older patient. This reduces the risk of dizzy or fainting spells. Contact your doctor if these symptoms continue. Alcohol may interfere with the effect of this medicine. Avoid alcoholic drinks. You have been given the following additional information: Pat (P.A.T.) Hypertension, New (Begin Treatment) Diet, Low Salt (2Gm) Metoprolol Tartrate Oral tablet (Electronically signed by Frankie Ballard Dr. 09/02/2016 22:04)
--- NOTE | 2016-09-02 22:04 | ED MAR SUMMARY ---
..... Medication Administration Record [facility] [address] [place] [address] Patient: MARITA HANNAH Visit ID: [id number] 66y, F Weight: 90.2 kg Height/Length: 70 in BMI: 28.5 ALLERGIES: No Known Drug Allergy Start 19:09 09/02/2016 Yudith Stephens,, Stop 20:10 09/02/2016 Yudith Stephens, Medication Administered: IV NS (SALINE), Dose: IV Fluids over 1 hour(s), Rate: 1000 mL/hr, Dispensed: 1000 mL bag, Site: #1 right hand. Medication Ordered: IV NS : initial bolus none -, then 1000 mL/hr for X1 (NOW). Given 19:14 09/02/2016 Yudith Stephens, Medication Administered: METOPROLOL [PO], Dose: 25 mg Tablets PO. Medication Ordered: Metoprolol PO 25 mg (HIGH ALERT MEDICATION, NOW).
--- NOTE | 2016-09-02 22:04 | ED MED RECONCILIATION SUMMARY ---
Patient: MARITA HANNAH Medication Reconciliation Report [facility] VisitID: [id number] [address] [place] [address] 66y, F Registration Date/Time: 09/02/2016 Weight: 90.2 kg Height/Length: 70 in. BMI: 28.5 ALLERGIES: No Known Drug Allergy The patient's Home Medications are listed below: CONTINUE TAKING THE FOLLOWING MEDICATIONS: Levothyroxine Sodium Oral Meloxicam Oral The source(s) of the original Home Medication information: patient The following Medications were given to the patient in the Emergency Department: IV NS IV Fluids bolus 0, then 1000 mL/hr, administered: 09/02/2016 7:09:00 PM Metoprolol [PO] PO 25 mg, administered: 09/02/2016 7:14:00 PM The following Medications were prescribed to the patient: Metoprolol 25 mg: take 1 orally every 12 hours. Dispense thirty (30). No refills. -- Frankie Ballard Dr.
== END 2016-09-02 21:21 | disposition home or self-care (01) ==
LOC: ED SRH 18:34
DX: R00.0 Tachycardia, unspecified (principal); I10 Essential (primary) hypertension; E03.9 Hypothyroidism, unspecified; F17.210 Nicotine dependence, cigarettes, uncomplicated
CPT/HCPCS: 90004; 90074; 90100; 90616; 91320; 91556; 92610; 92720; 95059